=== PATIENT | female | born 1955 | race Caucasian/White ===

== ENCOUNTER 2017-08-26 06:00 | Day surgery (SDC) | payer BC, OTHER ==
[2017-08-27] MEDS ORDERED: FENTAnyl 50 MCG/ML VIAL (17:28)
[2017-08-27] MEDS ORDERED: MIDAZOLAM 1 MG/ML 2 ML INJ ×2 (17:28)
== END 2017-08-26 14:04 | disposition home or self-care (01) ==
LOC: GIL 06:00
DX: Z12.11 Encounter for screening for malignant neoplasm of colon (principal); K64.8 Other hemorrhoids; E11.9 Type 2 diabetes mellitus without complications; I10 Essential (primary) hypertension
CPT/HCPCS: 45378; 82962